=== PATIENT | male | born 1980 | race African-American/Black ===

== ENCOUNTER → 2016-09-30 | Outpatient (CLI) | payer SELFPAY ==
[2016-09-30 12:51] LABS: ABSOLUTE EOSINOPHILS # (AUTO) 0.1 10^3/uL (0.0-0.6); ABSOLUTE MONOCYTES (AUTO) 0.3 10^3/uL (0.1-1.4); ABSOLUTE NEUT (AUTO) 2.9 10^3/uL (1.7-8.2); BASOPHILS % (AUTO) 0.6 % (0-2); EOSINOPHILS % (AUTO) 1.6 % (0-6); HEMATOCRIT 45.6 % (37.9-51.0); HEMOGLOBIN 14.9 g/dL (13.5-17.0); HGB HCT DIFFERENCE -0.9; LYMPHOCYTES % (AUTO) 36.7 % (13-45); MEAN CORPUSCULAR HEMOGLOBIN 27.7 pg (27.0-33.4); MEAN CORPUSCULAR HGB CONC 32.6 g/dL (32.0-36.0); MEAN CORPUSCULAR VOLUME 85 fl (80-97); MONOCYTES % (AUTO) 6.6 % (3-13); RED BLOOD COUNT 5.36 10^6/uL (4.35-5.55); RED CELL DISTRIBUTION WIDTH 13.5 % (11.5-14.0); SEGMENTED NEUTROPHILS % (AUTO) 54.5 % (42-78); WHITE BLOOD COUNT 5.3 10^3/uL (4.0-10.5)
[2016-09-30 13:06] LABS: ALANINE AMINOTRANSFERASE 27 U/L (21-72); ALBUMIN 4.5 g/dL (3.5-5.0); ALKALINE PHOSPHATASE 103 U/L (38-126); ANION GAP 14 (5-19); ASPARTATE AMINO TRANSFERASE 12 U/L (17-59); BILIRUBIN,DIRECT 0.3 mg/dL (0.0-0.4); BILIRUBIN,TOTAL 0.6 mg/dL (0.2-1.3); BLOOD UREA NITROGEN 13 mg/dL (7-20); CALCIUM 10.3 mg/dL (8.4-10.2); CARBON DIOXIDE 25 mmol/L (22-30); CHLORIDE 101 mmol/L (98-107); CHOLESTEROL 159.28 mg/dL (0-200); CREATININE RESULT 0.89 mg/dL (0.52-1.25); Direct HDL 37 mg/dL (>40); GLUCOSE 334 mg/dL (75-110); POTASSIUM 4.9 mmol/L (3.6-5.0); SODIUM 140.1 mmol/L (137-145); TOTAL PROTEIN 7.7 g/dL (6.3-8.2); TRIGLYCERIDES 97 mg/dL (<150)
[2016-09-30 13:17] LABS: DIRECT LDL 105 mg/dL (<100)
== END ==
LOC: OD 11:52
PROVIDERS: ATTEND Physician Assistant
DX: E78.5 Hyperlipidemia, unspecified (principal); E11.9 Type 2 diabetes mellitus without complications
CPT/HCPCS: 36415; 80053; 80061; 83036; 85025

== ENCOUNTER → 2016-12-13 | Outpatient (CLI) | payer SELFPAY ==
--- NOTE | 2016-12-14 09:18 | RADIOLOGY REPORT (SQ) ---
EXAM DESCRIPTION: PET CT SKULL/THIGH COMPLETED DATE/TIME: 12/13/2016 8:28 pm REASON FOR STUDY: MALIGNANT NEOPLASM OF RECTUM C20 MALIGNANT NEOPLASM OF RECTUM COMPARISON: None. RADIONUCLIDE AND DOSE: 12.6 mCi F18 FDG The route of agent administration: Intravenous FASTING BLOOD SUGAR: 108 mg/dl CONTRAST TYPE AND DOSE: No CT contrast given. TECHNIQUE: Blood glucose level was verified. Above dose of FDG was injected intravenously. 2-D seg mented attenuation correction images were obtained from the base of the skull to the midthighs. Nonc ontrast CT images were obtained for attenuation correction and fusion with emission images. CT image s were performed without oral or intravenous contrast and are not sensitive for parenchymal lesions. A series of overlapping emission PET images were obtained. Images reviewed and manipulated at [facility] work station by the radiologist. Images stored on PACS. LIMITATIONS: None. FINDINGS: HEAD AND NECK: No areas of abnormal metabolic activity in the soft tissues of the head and neck. CHEST: No areas of abnormal metabolic activity in the chest. ABDOMEN AND PELVIS: There are 2 hypermetabolic nodes in the ischiorectal fossa to right of midline. The largest has indistinct tissue margins with the right rectal wall. Largest node measures 2 cm and 5.4 SUV. Smaller node measures about 1 cm and maximum 2.4 SUV. PROXIMAL LOWER EXTREMITIES: No areas of abnormal metabolic activity in the soft tissues of the lower extremities. BONES: No abnormal metabolic activity in the visualized skeleton. ADDITIONAL CT FINDINGS: Right-sided port with tip in the SVC. OTHER: No other significant findings. IMPRESSION: Hypermetabolic regional nodes. TECHNICAL DOCUMENTATION: JOB ID: [id number] [employer]- All Rights Reserved
== END ==
LOC: RAD 17:44
PROVIDERS: ATTEND Internal Medicine Medical Oncology
DX: C20 Malignant neoplasm of rectum (principal)
CPT/HCPCS: 78815; A9552

== ENCOUNTER → 2017-01-04 | Outpatient (CLI) | payer SELFPAY ==
--- NOTE | 2017-01-04 12:11 | XCELERA REPORT ---
[address] [address] Upper Extremity Venous Evaluation Name: YAMIL MCLEAN JR Age: 37 yrs Gender: Male : 1980 Patient Status: Outpatient Patient Location: Study Date: 01/04/2017 10:22 AM Procedure: Unilateral duplex scan of the right upper extremity veins was performed, including responses to compression and other maneuvers. Reason For Study: RUE SWELLING Ordering Physician: ZAIRE DAVID Performed By: Bernice Springer Right Side Venous Evaluation Abnormal vessel filling, no compression or augmentation in the Internal Jugular vein. Otherwise normal flow, compression and augmentation, in the deep and superficial veins. Interpretation Summary Deep venous thrombosis, limited to the Internal Jugular vein on the right. The patient to return to Dr David's office. : ZAIRE DAVID > Randy Mclean
== END ==
LOC: SP 10:13
PROVIDERS: ATTEND Internal Medicine Medical Oncology
DX: M54.2 Cervicalgia (principal); R22.1 Localized swelling, mass and lump, neck
CPT/HCPCS: 93971

== ENCOUNTER 2017-01-05 17:34 | Emergency (ER) | payer SELFPAY ==
[2017-01-05] MEDS ORDERED: NORMAL SALINE 1000 ML 1,000 ML IV ONE (18:16)
[2017-01-05] MEDS ORDERED: MORPHINE SULFATE 10 MG/ML INJ IV ONE (18:17)
--- NOTE | 2017-01-05 18:18 | ER Document Report ---
ED Medical Screen (RME) - General Chief Complaint: Back Pain Stated Complaint: BACK PAIN, NECK PAIN Time Seen by Provider: 01/05/17 18:14 Notes: Patient has colorectal cancer. He recently had a port in his right neck that became clotted. Today they placed a PICC line in his left arm. He states starting yesterday he began to have right-sided mid back pain that radiates to the right abdomen. Is now progressed today and become severe. He states he does not feel short of breath but does hurt when he takes a deep breath. He has not appreciated any change of his urine. No vomiting. TRAVEL OUTSIDE OF THE [place] IN LAST 30 DAYS: No - Related Data Allergies/Adverse Reactions: No Known Allergies Allergy (Verified 01/05/17 17:44) Past Medical History - Past Medical History Cardiac Medical History: Reports: Hx Hypertension Endocrine Medical History: Reports: Hx Diabetes Mellitus Type 2 Renal/ Medical History: Denies: Hx Peritoneal Dialysis Physical Exam - Vital signs Vitals: Temp Pulse BP Pulse Ox 98.7 F 111 H 133/78 H 100 01/05/17 17:42 01/05/17 17:42 01/05/17 17:42 01/05/17 17:42 Course - Vital Signs Vital signs: Temp Pulse Resp BP Pulse Ox 98.7 F 111 H 133/78 H 100 01/05/17 17:42 01/05/17 17:42 01/05/17 17:42 01/05/17 17:42
[2017-01-05 18:58] LABS: APPEARANCE,URINE CLEAR; BILIRUBIN,URINE NEGATIVE (NEGATIVE); GLUCOSE, URINE NEGATIVE (NEGATIVE); KETONES,URINE NEGATIVE (NEGATIVE); LEUKOCYTE ESTERASE,URINE NEGATIVE (NEGATIVE); NITRITE,URINE NEGATIVE (NEGATIVE); PROTEIN,URINE NEGATIVE (NEGATIVE); URINE SPECIFIC GRAVITY 1.013; UROBILINOGEN,URINE NEGATIVE mg/dL (<2.0)
[2017-01-05 19:38] LABS: ABSOLUTE BASOPHILS # (AUTO) 0.1 10^3/uL (0.0-0.2); ABSOLUTE EOSINOPHILS # (AUTO) 0.1 10^3/uL (0.0-0.6); ABSOLUTE LYMPHOCYTES (AUTO) 1.1 10^3/uL (0.5-4.7); ABSOLUTE MONOCYTES (AUTO) 0.8 10^3/uL (0.1-1.4); ABSOLUTE NEUT (AUTO) 5.2 10^3/uL (1.7-8.2); BASOPHILS % (AUTO) 0.7 % (0-2); HEMATOCRIT 38.3 % (37.9-51.0); HEMOGLOBIN 13.1 g/dL (13.5-17.0); LYMPHOCYTES % (AUTO) 15.1 % (13-45); MEAN CORPUSCULAR HEMOGLOBIN 27.8 pg (27.0-33.4); MEAN CORPUSCULAR HGB CONC 34.2 g/dL (32.0-36.0); MEAN CORPUSCULAR VOLUME 81 fl (80-97); MONOCYTES % (AUTO) 11.2 % (3-13); RED BLOOD COUNT 4.71 10^6/uL (4.35-5.55); RED CELL DISTRIBUTION WIDTH 14.2 % (11.5-14.0); WHITE BLOOD COUNT 7.2 10^3/uL (4.0-10.5)
[2017-01-05 19:55] LABS: ALANINE AMINOTRANSFERASE 31 U/L (21-72); ALBUMIN 4.5 g/dL (3.5-5.0); ALKALINE PHOSPHATASE 96 U/L (38-126); ANION GAP 16 (5-19); ASPARTATE AMINO TRANSFERASE 15 U/L (17-59); BILIRUBIN,DIRECT 0.5 mg/dL (0.0-0.4); BLOOD UREA NITROGEN 10 mg/dL (7-20); CALCIUM 9.8 mg/dL (8.4-10.2); CARBON DIOXIDE 25 mmol/L (22-30); CHLORIDE 98 mmol/L (98-107); GLUCOSE 215 mg/dL (75-110); POTASSIUM 4.1 mmol/L (3.6-5.0); TOTAL PROTEIN 7.6 g/dL (6.3-8.2)
--- NOTE | 2017-01-05 20:24 | ER Document Report ---
ED General - General Chief Complaint: Back Pain Stated Complaint: BACK PAIN, NECK PAIN Time Seen by Provider: 01/05/17 18:14 Mode of Arrival: Ambulatory Information source: Patient, Relative Notes: 37-year-old male presents with complaints of right lower lobe pain and right upper abdominal pain with breathing. Patient was diagnosed with a blood clot in the left jugular. TRAVEL OUTSIDE OF THE [place] IN LAST 30 DAYS: No - Related Data Allergies/Adverse Reactions: No Known Allergies Allergy (Verified 01/05/17 17:44) Past Medical History - Social History Smoking Status: Unknown if Ever Smoked Family History: Reviewed & Not Pertinent - Past Medical History Cardiac Medical History: Reports: Hx Hypertension Endocrine Medical History: Reports: Hx Diabetes Mellitus Type 2 Renal/ Medical History: Denies: Hx Peritoneal Dialysis Review of Systems - Review of Systems Notes: REVIEW OF SYSTEMS: CONSTITUTIONAL : Denies fever, chills, or sweats. Denies recent illness. EENT: Denies eye, ear, throat, or mouth pain or symptoms. Denies nasal or sinus congestion or discharge. Denies throat, tongue, or mouth swelling or difficulty swallowing. CARDIOVASCULAR: Denies chest pain. Denies palpitations or racing or irregular heart beat. Denies ankle edema. RESPIRATORY: Admits to shortness of breath GASTROINTESTINAL: Denies abdominal pain or distention. Denies nausea, vomiting , or diarrhea. Denies blood in vomitus, stools, or per rectum. Denies black, tarry stools. Denies constipation. GENITOURINARY: Denies difficulty urinating, painful urination, burning, frequency, blood in urine, or discharge. MUSCULOSKELETAL: Denies back or neck pain or stiffness. Denies joint pain or swelling. SKIN: Denies rash, lesions or sores. HEMATOLOGIC : Denies easy bruising or bleeding. LYMPHATIC: Denies swollen, enlarged glands. NEUROLOGICAL: Denies confusion or altered mental status. Denies passing out or loss of consciousness. Denies dizziness or lightheadedness. Denies headache. Denies weakness or paralysis or loss of use of either side. Denies problems with gait or speech. Denies sensory loss, numbness, or tingling. Denies seizures. PSYCHIATRIC: Denies anxiety or stress. Denies depression, suicidal ideation, or homicidal ideation. ALL OTHER SYSTEMS REVIEWED AND NEGATIVE. Dictation was performed using [employer] recognition software PHYSICAL EXAMINATION: GENERAL: Well-appearing, well-nourished and in no acute distress. HEAD: Atraumatic, normocephalic. EYES: Pupils equal round and reactive to light, extraocular movements intact, sclera anicteric, conjunctiva are normal. ENT: Nares patent, oropharynx clear without exudates. Moist mucous membranes. NECK: Normal range of motion, supple without lymphadenopathy LUNGS: Breath sounds clear to auscultation bilaterally and equal. No wheezes rales or rhonchi. HEART: Regular rate and rhythm without murmurs ABDOMEN: Soft, nontender, nondistended abdomen. No guarding, no rebound. No masses appreciated. Musculoskeletal: Normal range of motion, no pitting or edema. No cyanosis. NEUROLOGICAL: Cranial nerves grossly intact. Normal speech, normal gait. Normal sensory, motor exams PSYCH: Normal mood, normal affect. SKIN: Warm, Dry, normal turgor, no rashes or lesions noted. Physical Exam - Vital signs Vitals: Temp Pulse BP Pulse Ox 98.7 F 111 H 133/78 H 100 01/05/17 17:42 01/05/17 17:42 01/05/17 17:42 01/05/17 17:42 Course - Re-evaluation Re-evalutation: 01/05/17 21:37 CTA was performed through the patient's PICC line, it does note small bilateral pulmonary emboli, given his history of blood clot in his neck and the fact that he was going to get started on Xarelto tomorrow I will start him on the medication today. I believe he is stable for discharge his O2 sats 100% heart rate is less than 100 respiratory rate is less than 20 and the patient overall looks quite well After performing a Medical Screening Examination, I estimate there is LOW risk for ACUTE CORONARY SYNDROME, RESPIRATORY FAILURE, SEPSIS OR MENINGITIS, thus I consider the discharge disposition reasonable. I have reevaluated this patient multiple times and no significant life threatening changes are noted. The patient and I have discussed the diagnosis and risks, and we agree with discharging home with close follow-up. We also discussed returning to the Emergency Department immediately if new or worsening symptoms occur. We have discussed the symptoms which are most concerning (e.g., changing or worsening pain, trouble swallowing or breathing, neck stiffness, fever) that necessitate immediate return. - Vital Signs Vital signs: Temp Pulse Resp BP Pulse Ox 98.7 F 111 H 19 149/99 H 99 01/05/17 17:42 01/05/17 17:42 01/05/17 20:41 01/05/17 20:41 01/05/17 20:41 - Laboratory Result Diagrams: 01/05/17 19:25 01/05/17 19:25 Laboratory results interpreted by me: 01/05/17 01/05/17 19:25 19:25 Hgb 13.1 L RDW 14.2 H Glucose 215 H Direct Bilirubin 0.5 H AST 15 L - Diagnostic Test Radiology reviewed: Image reviewed, Reports reviewed - Bilateral pulmonary emboli Discharge - Discharge Clinical Impression: Bilateral pulmonary embolism Colon cancer Qualifiers: Colon location: unspecified part of colon Qualified Code(s): C18.9 - Malignant neoplasm of colon, unspecified Condition: Stable Disposition: HOME, SELF-CARE Additional Instructions: Please follow-up with your crap game box person regarding the use of blood thinners Return immediately if there are any other concerns Referrals: GHADA CALVIN MD [Primary Care Provider] - Follow up as needed
--- NOTE | 2017-01-05 21:19 | RADIOLOGY REPORT (SQ) ---
EXAM DESCRIPTION: CTA CHEST COMPLETED DATE/TIME: 01/05/2017 9:06 pm REASON FOR STUDY: hx clotting issues, picc line placed COMPARISON: None. TECHNIQUE: CT scan of the chest performed using helical scanning technique with dynamic intravenous contrast injection. Images reviewed with lung, soft tissue and bone windows. Reconstructed coronal and sagittal MPR images reviewed. Additional 3 dimensional post-processing performed to develop Maximal Intensity Projection images (AK P). All images stored on PACS. All CT scanners at this facility use dose modulation, iterative reconstruction, and/or weight based d osing when appropriate to reduce radiation dose to as low as reasonably achievable (ALARA). [facility]: Dose Right [facility]: CareDose [facility]: Dose Right [facility]: Teradose 4D [facility]: Codealike CONTRAST TYPE AND DOSE: 100 mL Isovue 370 Contrast bolus optimized for the pulmonary arteries. Not diagnostic for the aorta RENAL FUNCTION: None required. The patient is less than 50 years old. RADIATION DOSE: . LIMITATIONS: None. FINDINGS: LUNGS AND PLEURA: There is focal airspace density in the posterior sulcus on the right whi ch could represent atelectatic changes or a minimal pneumonic infiltrate. Remaining lung sparrow are clear. No pleural effusions are identified. No pneumothorax is seen. AORTA AND GREAT VESSELS: No aneurysm. Contrast bolus not optimized for the aorta. HEART: No pericardial effusion. No significant coronary artery calcifications. PULMONARY ARTERIES: There are small pulmonary emboli in a single descending pulmonary artery bilatera lly. HILAR AND MEDIASTINAL STRUCTURES: No identified masses or abnormal nodes. HARDWARE: None in the chest. UPPER ABDOMEN: See results under abdominal CT scan THYROID AND OTHER SOFT TISSUES: No masses. No adenopathy. BONES: No acute or significant finding. 3D MIPS: Confirm above findings. OTHER: No other significant finding. IMPRESSION: There is focal airspace density in the posterior sulcus on the right which could represe nt atelectatic changes or minimal pneumonic infiltrate. There are small pulmonary emboli in a single descending pulmonary artery bilaterally. Other findings as noted above COMMENT: Quality ID # 436: Final reports with documentation of one or more dose reduction techniques (e.g., Automated exposure control, adjustment of the mA and/or kV according to patient size, use of iterative reconstruction technique) TECHNICAL DOCUMENTATION: JOB ID: [id number] [employer]- All Rights Reserved
[2017-01-05] MEDS ORDERED: RIVAROXABAN 15 MG TABLET PO ONE (21:23)
--- NOTE | 2017-01-05 21:25 | RADIOLOGY REPORT (SQ) ---
EXAM DESCRIPTION: CTA ABDOMEN/PELVIS W WO COMPLETED DATE/TIME: 01/05/2017 9:06 pm REASON FOR STUDY: hx clotting issues, picc line placed COMPARISON: None. TECHNIQUE: CT scan of the abdominal aorta extending to the iliac bifurcation performed with intraven ous contrast using helical scanning technique with dynamic intravenous contrast injection. Images rev iewed with lung, soft tissue, and bone windows. Reconstructed coronal and sagittal MPR images reviewe d. All images stored on PACS. Advanced 3D imaging as volume rendering, MIPS, SSD performed? No All CT scanners at this facility use dose modulation, iterative reconstruction, and/or weight based d osing when appropriate to reduce radiation dose to as low as reasonably achievable (ALARA). [facility]: Dose Right [facility]: CareDose [facility]: Dose Right [facility]: Teradose 4D [facility]: Autotether CONTRAST TYPE AND DOSE: contrast/concentration: Isovue 370.00 mg/ml; Total Contrast Delivered: 100.0 ml; Total Saline Delivered: 87.0 ml RENAL FUNCTION: None required. The patient is less than 50 years old. LIMITATIONS: None. FINDINGS: POST-CONTRAST IMAGING: AORTA AND VESSELS: No aneurysm. No dissection. Renal arteries, SMA, celiac without stenosis. LUNG BASES: See results under CTA of the chest LIVER: Normal size. No masses or dilated ducts. SPLEEN: Normal size. No focal lesions. PANCREAS: No masses. No significant calcifications. No adjacent inflammation or peripancreatic fluid collections. Pancreatic duct not dilated. GALLBLADDER: No identified stones by CT criteria. No inflammatory changes to suggest cholecystitis. ADRENAL GLANDS: No significant masses or asymmetry. RIGHT KIDNEY AND URETER: No mass, calculi or urinary tract obstruction. LEFT KIDNEY AND URETER: No mass, calculi or urinary tract obstruction. RETROPERITONEUM: No retroperitoneal adenopathy, hemorrhage or masses. BOWEL AND PERITONEAL CAVITY: There is irregular thickening of the montes of the rectosigmoid. While t his may be related to edematous or inflammatory changes, the possibility of a mass cannot be excluded . APPENDIX: Normal. ABDOMINAL WALL: No masses. No hernias. BONY STRUCTURES: No significant or acute findings. 3-D IMAGING: Confirms the above findings. OTHER: No other significant finding. IMPRESSION: NO ABDOMINAL AORTIC ANEURYSM, DISSECTION OR SIGNIFICANT STENOSIS. There is irregular th ickening of the montes of the rectosigmoid. While this may be related to edematous or inflammatory ch anges, the possibility of a mass cannot be excluded. Clinical correlation is recommended. Other fin dings as noted above TECHNICAL DOCUMENTATION: JOB ID: [id number] Quality ID # [id number]: Final reports with documentation of one or more dose reduction techniques (e.g., Au tomated exposure control, adjustment of the mA and/or kV according to patient size, use of iterative reconstruction technique) 2010 [employer] All Rights Reserved
[2017-01-05 21:41] VITALS: BP 145/96
== END 2017-01-05 21:53 | disposition home or self-care (01) ==
LOC: ER 17:34
DX: I26.99 Other pulmonary embolism without acute cor pulmonale (principal); I82.C12 Acute embolism and thrombosis of left internal jugular vein; C18.9 Malignant neoplasm of colon, unspecified; R10.11 Right upper quadrant pain; I10 Essential (primary) hypertension; E11.9 Type 2 diabetes mellitus without complications; R06.02 Shortness of breath
CPT/HCPCS: 36592; 99284; 96361; 96374; 36415; 85025; 80053; 81001; 71275; 74174; J2270; J7030

== ENCOUNTER → 2017-03-17 | Outpatient (CLI) | payer MEDICAID | LOC: OD 10:21 | PROVIDERS: ATTEND Radiology Radiation Oncology | DX: C20 Malignant neoplasm of rectum (principal) | CPT/HCPCS: 36415; 82378 ==

== ENCOUNTER 2017-05-21 19:14 | Emergency (ER) | payer OTHER, MEDICAID ==
[2017-05-21] MEDS ORDERED: NORMAL SALINE 1000 ML 1,000 ML IV ONE (19:38)
--- NOTE | 2017-05-21 19:38 | ER Document Report ---
ED Medical Screen (RME) - General Chief Complaint: Post Surgical Pain Stated Complaint: BODY PAIN,WEAKNESS,TINGLING Time Seen by Provider: 05/21/17 19:31 Notes: RME DISCLOSURE I have seen this patient as part of a Rapid Medical Evaluation and, if applicable, placed any initially appropriate orders. The patient will be seen and fully evaluated, including a full history and physical exam, by a provider ( in Main ED or Fast Track) when a room becomes available. 37-year-old male status post recent colectomy (cancer) with ostomy placement here with complaints of feeling weak, dizzy, lightheaded, and pain all over that has been ongoing for a while but had been present even at discharge from the hospital 2 days ago. He has not had any vomiting diarrhea cough but has felt "hot". Has not checked his temperature at home. EXAM Moderately tachycardic TRAVEL OUTSIDE OF THE [place] IN LAST 30 DAYS: No - Related Data Allergies/Adverse Reactions: No Known Allergies Allergy (Verified 01/05/17 17:44) Past Medical History - Social History Chew tobacco use (# tins/day): No Drug Abuse: None - Past Medical History Cardiac Medical History: Reports: Hx Hypertension Endocrine Medical History: Reports: Hx Diabetes Mellitus Type 2 Renal/ Medical History: Denies: Hx Peritoneal Dialysis Physical Exam - Vital signs Vitals: Temp Pulse Resp BP Pulse Ox 99.7 F 128 H 18 108/57 L 100 05/21/17 19:23 05/21/17 19:23 05/21/17 19:23 05/21/17 19:23 05/21/17 19:23 Course - Vital Signs Vital signs: Temp Pulse Resp BP Pulse Ox 99.7 F 128 H 18 108/57 L 100 05/21/17 19:23 05/21/17 19:23 05/21/17 19:23 05/21/17 19:23 05/21/17 19:23
[2017-05-21] MEDS ORDERED: HYDROCODONE/ACETAMINOPHEN 5-325 MG TABLET PO ONE (19:39)
--- NOTE | 2017-05-21 20:32 | ER Document Report ---
ED General - General Chief Complaint: Post Surgical Pain Stated Complaint: BODY PAIN,WEAKNESS,TINGLING Time Seen by Provider: 05/21/17 19:31 Notes: Patient is a 37-year-old male that comes emergency department for chief complaint of weakness, feeling lightheaded, and generalized body aches. He is postop colectomy on 05/03 (by Surgeon Dr. Sorto at [facility]), was discharged 2 days ago to home, states he felt okay then and then has felt worse since. He denies bleeding in his ostomy bag, he states his wounds are healing and not painful, he denies vomiting, he denies cough or difficulty breathing, he denies chest pain. He had colectomy secondary to colon cancer. He also has non-insulin- dependent diabetes and hypertension. His PCP is Dr. Cici Martinez. TRAVEL OUTSIDE OF THE [place] IN LAST 30 DAYS: No - Related Data Allergies/Adverse Reactions: No Known Allergies Allergy (Verified 01/05/17 17:44) Past Medical History - General Information source: Patient - Social History Smoking Status: Never Smoker Chew tobacco use (# tins/day): No Drug Abuse: None Lives with: Spouse/Significant other Family History: Reviewed & Not Pertinent Patient has suicidal ideation: No Patient has homicidal ideation: No - Past Medical History Cardiac Medical History: Reports: Hx Hypertension Endocrine Medical History: Reports: Hx Diabetes Mellitus Type 2 Renal/ Medical History: Denies: Hx Peritoneal Dialysis Past Surgical History: Reports: Hx Bowel Surgery - Immunizations Hx Diphtheria, Pertussis, Tetanus Vaccination: Yes Review of Systems - Review of Systems Constitutional: See HPI EENT: No symptoms reported Cardiovascular: No symptoms reported Respiratory: No symptoms reported Gastrointestinal: See HPI Genitourinary: No symptoms reported Male Genitourinary: No symptoms reported Musculoskeletal: No symptoms reported Skin: No symptoms reported Hematologic/Lymphatic: No symptoms reported Neurological/Psychological: No symptoms reported Physical Exam - Vital signs Vitals: Temp Pulse Resp BP Pulse Ox 99.7 F 128 H 18 108/57 L 100 05/21/17 19:23 05/21/17 19:23 05/21/17 19:23 05/21/17 19:23 05/21/17 19:23 - General General appearance: Appears well, Alert In distress: None - HEENT Head: Normocephalic, Atraumatic Eyes: Normal Extraocular movements intact: Yes Eyelashes: Normal Pupils: PERRL Mouth/Lips: Normal Mucous membranes: Normal Pharynx: Normal Neck: Normal - Cardiovascular Rhythm: Regular, Tachycardia Heart sounds: Normal auscultation, S1 appreciated, S2 appreciated - Abdominal Inspection: Healed incision - Healed incisions over the right side of the abdomen, left mid to lower abdomen with a ostomy bag with normal-appearing stool. Tenderness: Tender - Minimal generalized tenderness, nonspecific, no guarding, no focal tenderness - Back Back: Normal, Nontender. No: Tender - Extremities General upper extremity: Normal inspection, Nontender, Normal strength, Normal temperature General lower extremity: Normal inspection, Nontender, Normal strength, Normal temperature - Neurological Neuro grossly intact: Yes Cognition: Normal Orientation: AAOx4 [place] Coma Scale Eye Opening: Spontaneous [place] Coma Scale Verbal: Oriented Shahab Coma Scale Motor: Obeys Commands [place] Coma Scale Total: 15 Speech: Normal Cranial nerves: Normal Cerebellar coordination: Normal Motor strength normal: LUE, RUE, LLE, RLE Additional motor exam normals: Equal deputy clerk of superior court Sensory: Normal - Psychological Associated symptoms: Normal affect, Normal mood - Skin Skin irregularity: other - There is a FELY drain over the left lower buttock area that has some bloody drainage in the FELY drain, no significant tenderness, induration, or erythema around the wound, there are old healing wounds over the abdomen on the right side with no surrounding erythema, tenderness, or induration. Course - Re-evaluation Re-evalutation: Patient initially tachycardic on examination, however he is very well-appearing , alert, clear lungs, soft abdomen, wounds and drains all appear normal with no erythema, purulent discharge, or other abnormality noted. No fever. No vomiting or abdominal pain reported. Ostomy output appears normal. After IV fluids patient's tachycardia resolved and he states that he no longer has any symptoms, he states he feels much better. CBC shows some anemia but not concerningly low, no leukocytosis, chemistry is generally unremarkable, urinalysis unremarkable. Thrombocytosis noted but patient is postop and had blood transfusions. Likely reactive. Chest x-ray unremarkable as well. Discussed with Dr. Best. Because patient has not had fever, vomiting or abdominal pain, his tachycardia has resolved, and he is currently asymptomatic with an unremarkable workup, recommends patient call his provider within the next 48 hours, strict return precautions, but patient can be discharged at this time. I discussed this with patient, he is very satisfied with this plan. - Vital Signs Vital signs: Temp Pulse Resp BP Pulse Ox 98.5 F 128 H 22 H 133/74 H 100 05/22/17 00:35 05/21/17 19:23 05/22/17 01:01 05/22/17 01:01 05/22/17 01:01 - Laboratory Result Diagrams: 05/21/17 19:29 05/21/17 19:29 Laboratory results interpreted by me: 05/21/17 05/21/17 19:29 19:29 RBC 3.15 L Hgb 8.7 L Hct 25.5 L RDW 15.9 H Plt Count 899 H Lymphocytes % 8.5 L Monocytes % 14.6 H Sodium 133.8 L Chloride 95 L Albumin 3.3 L Discharge - Discharge Clinical Impression: Generalized weakness, Body aches Condition: Stable Disposition: HOME, SELF-CARE Additional Instructions: Your workup does not show any concerning abnormality at this time. Follow-up closely with both primary care and surgery as planned. Return immediately if you worsen including vomiting, redness around the wound, discolored discharge from the wound, fever 100.4 or greater, abdominal pain, or any other concerning or worsening symptoms. Referrals: SHEREE MARTINEZ MD [Primary Care Provider] - Follow up as needed
[2017-05-21 21:12] LABS: ABSOLUTE BASOPHILS # (AUTO) 0.1 10^3/uL (0.0-0.2); ABSOLUTE EOSINOPHILS # (AUTO) 0.1 10^3/uL (0.0-0.6); ABSOLUTE LYMPHOCYTES (AUTO) 0.8 10^3/uL (0.5-4.7); ABSOLUTE MONOCYTES (AUTO) 1.4 10^3/uL (0.1-1.4); ABSOLUTE NEUT (AUTO) 7.1 10^3/uL (1.7-8.2); BASOPHILS % (AUTO) 0.6 % (0-2); EOSINOPHILS % (AUTO) 0.9 % (0-6); HEMATOCRIT 25.5 % (37.9-51.0); HEMOGLOBIN 8.7 g/dL (13.5-17.0); LYMPHOCYTES % (AUTO) 8.5 % (13-45); MEAN CORPUSCULAR HEMOGLOBIN 27.5 pg (27.0-33.4); MEAN CORPUSCULAR VOLUME 81 fl (80-97); MONOCYTES % (AUTO) 14.6 % (3-13); PLATELET COUNT 899 10^3/uL (150-450); RED BLOOD COUNT 3.15 10^6/uL (4.35-5.55); RED CELL DISTRIBUTION WIDTH 15.9 % (11.5-14.0); SEGMENTED NEUTROPHILS % (AUTO) 75.4 % (42-78); TOTAL CELLS COUNTED % (AUTO) 100 %; WHITE BLOOD COUNT 9.5 10^3/uL (4.0-10.5)
--- NOTE | 2017-05-21 21:13 | RADIOLOGY REPORT (SQ) ---
EXAM DESCRIPTION: CHEST SINGLE VIEW COMPLETED DATE/TIME: 05/21/2017 8:48 pm REASON FOR STUDY: post op, weak COMPARISON: None. EXAM PARAMETERS: NUMBER OF VIEWS: One view. TECHNIQUE: Single frontal radiographic view of the chest acquired. RADIATION DOSE: NA LIMITATIONS: None. FINDINGS: LUNGS AND PLEURA: No pneumothorax. No consolidation or pleural effusion. MEDIASTINUM AND HILAR STRUCTURES: No masses. Contour normal. HEART AND VASCULAR STRUCTURES: Heart normal in size. Normal vasculature. BONES: No acute findings. HARDWARE: Left PICC line. OTHER: No other significant finding. IMPRESSION: NO ACUTE RADIOGRAPHIC FINDING IN THE CHEST. TECHNICAL DOCUMENTATION: JOB ID: [id number] 2010 [employer]- All Rights Reserved Reading location - IP/workstation name: [email or web address]
[2017-05-21 21:30] LABS: ALANINE AMINOTRANSFERASE 36 U/L (21-72); ALBUMIN 3.3 g/dL (3.5-5.0); ALKALINE PHOSPHATASE 67 U/L (38-126); ANION GAP 12 (5-19); ASPARTATE AMINO TRANSFERASE 21 U/L (17-59); BILIRUBIN,DIRECT 0.3 mg/dL (0.0-0.4); BILIRUBIN,TOTAL 0.3 mg/dL (0.2-1.3); BLOOD UREA NITROGEN 8 mg/dL (7-20); CALCIUM 9.3 mg/dL (8.4-10.2); CARBON DIOXIDE 27 mmol/L (22-30); CHLORIDE 95 mmol/L (98-107); GLUCOSE 104 mg/dL (75-110); POTASSIUM 3.9 mmol/L (3.6-5.0); SODIUM 133.8 mmol/L (137-145); TOTAL PROTEIN 6.5 g/dL (6.3-8.2)
[2017-05-21] MEDS ORDERED: NORMAL SALINE 1000 ML 500 ML IV ONE (23:01)
[2017-05-21 23:02] LABS: APPEARANCE,URINE CLEAR; BILIRUBIN,URINE NEGATIVE (NEGATIVE); COLOR,URINE YELLOW; GLUCOSE, URINE NEGATIVE (NEGATIVE); KETONES,URINE NEGATIVE (NEGATIVE); LEUKOCYTE ESTERASE,URINE NEGATIVE (NEGATIVE); NITRITE,URINE NEGATIVE (NEGATIVE); PROTEIN,URINE NEGATIVE (NEGATIVE); UROBILINOGEN,URINE NEGATIVE mg/dL (<2.0)
[2017-05-22 01:03] VITALS: BP 133/74
== END 2017-05-22 01:15 | disposition home or self-care (01) ==
LOC: ER 19:14
DX: R53.1 Weakness (principal); M79.1 Myalgia; G89.18 Other acute postprocedural pain; C18.9 Malignant neoplasm of colon, unspecified; R20.0 Anesthesia of skin; I10 Essential (primary) hypertension; E11.9 Type 2 diabetes mellitus without complications; Z79.4 Long term (current) use of insulin; Z90.49 Acquired absence of other specified parts of digestive tract
CPT/HCPCS: 99285; 96360; 86900; 86901; 36415; 87040; 86850; 85025; 80053; 81001; 83605; 71045; J7030

== ENCOUNTER → 2018-01-30 | Outpatient (CLI) | payer MEDICAID ==
--- NOTE | 2018-01-31 08:56 | RADIOLOGY REPORT (SQ) ---
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 RADIONUCLIDE AND DOSE: 10 mCi F18 FDG The route of agent administration: Intravenous FASTING BLOOD SUGAR: 107 mg/dl CONTRAST TYPE AND DOSE: No CT contrast given. TECHNIQUE: Blood glucose level was verified. Above dose of FDG was injected intravenously. 2-D seg mented attenuation correction images were obtained from the base of the skull to the midthighs. Nonc ontrast CT images were obtained for attenuation correction and fusion with emission images. CT image s were performed without oral or intravenous contrast and are not sensitive for parenchymal lesions. A series of overlapping emission PET images were obtained. Images reviewed and manipulated at [facility] work station by the radiologist. Images stored on PACS. LIMITATIONS: None. FINDINGS: HEAD AND NECK: No areas of abnormal metabolic activity in the soft tissues of the head and neck. CHEST: No areas of abnormal metabolic activity in the chest. There are new thin walled cystic lesion s in the left lower lobe measuring 7 mm and 9 mm (axial series 3, image 79 and image 87). ABDOMEN AND PELVIS: Interval resection of the rectosigmoid with left lower quadrant ostomy. Previous ly seen hypermetabolic lymph node in the right ischial fossa no longer present. No areas of abnormal metabolic activity in the abdomen or pelvis. Expected physiologic activity is present in the genito urinary system and bowel. PROXIMAL LOWER EXTREMITIES: No areas of abnormal metabolic activity in the soft tissues of the lower extremities. BONES: New linear areas of increased activity in the marrow of the proximal right and left femur. Me an SUV value 7.0 and 6.08. No other abnormal metabolic activity in the visualized skeleton. ADDITIONAL CT FINDINGS: No additional significant findings on the noncontrast CT images. OTHER: No other significant findings. Background blood pool activity mean SUV 1.35. Background live r activity mean SUV 2.08. IMPRESSION: 1. INTERVAL DEVELOPMENT OF SMALL THIN WALLED CYSTIC LESIONS IN THE LEFT LOWER LOBE. NO ASSOCIATED IN CREASED ACTIVITY. CANNOT EXCLUDE THE POSSIBILITY OF SMALL METASTASES WHICH HAVE MINIMAL SOFT TISSUE AND ARE NOT DETECTABLE ON PET IMAGING. 2. INTERVAL RESECTION OF THE RECTOSIGMOID. PREVIOUSLY SEEN HYPERMETABOLIC PERIRECTAL LYMPH NODES NO LONGER PRESENT. 3. INCREASED ACTIVITY IN THE MARROW OF THE PROXIMAL RIGHT AND LEFT FEMUR. THE DISTRIBUTION IS UNUSUA L AND NOT TYPICAL FOR BONY METASTASES. WOULD CONSIDER MRI FOR FURTHER EVALUATION. TECHNICAL DOCUMENTATION: JOB ID: [id number] [employer]- All Rights Reserved Reading location - IP/workstation name: [email or web address]
== END ==
LOC: RAD 16:57
PROVIDERS: ATTEND Internal Medicine Medical Oncology
DX: C20 Malignant neoplasm of rectum (principal)
CPT/HCPCS: 78815; A9552

== ENCOUNTER → 2018-04-04 | Outpatient (CLI) | payer MEDICAID ==
--- NOTE | 2018-04-04 12:09 | RADIOLOGY REPORT (SQ) ---
EXAM DESCRIPTION: CT CHEST WITH COMPLETED DATE/TIME: 04/04/2018 10:25 am REASON FOR STUDY: DISORDER OF THE LUNG J98.4 OTHER DISORDERS OF LUNG COMPARISON: 01/05/2017 TECHNIQUE: CT scan of the chest performed using helical scanning technique with dynamic intravenous contrast injection. Images reviewed with lung, soft tissue and bone windows. Reconstructed coronal and sagittal MPR and MIP images reviewed. All images stored on PACS. All CT scanners at this facility use dose modulation, iterative reconstruction, and/or weight based d osing when appropriate to reduce radiation dose to as low as reasonably achievable (ALARA). [facility]: Dose Right [facility]: CareDose [facility]: Dose Right [facility]: Teradose 4D [facility]: [employer] CONTRAST TYPE AND DOSE: contrast/concentration: Isovue 350.00 mg/ml; Total Contrast Delivered: 80.0 ml; Total Saline Delivered: 55.0 ml RENAL FUNCTION: Creatinine 1.4 RADIATION DOSE: CT Rad equipment meets quality standard of care and radiation dose reduction techniq ues were employed. CTDIvol: 15.7 mGy. DLP: 644 mGy-cm. . LIMITATIONS: None. FINDINGS: LUNGS AND PLEURA: Interval decrease in the right lower lobe airspace disease since the pr ior study. Small residual remains, axial image 100, series 4. A bilobed pulmonary nodule left lower lobe, axial image 66, coronal image 82, series 601, represent a new finding since the prior examinat ion. Stable minimal to very slight pleural nodularity in the lower lobes and scattered scarring or a telectasis in the lungs. No pneumothorax or pleural effusion. The central airways are clear. HILAR AND MEDIASTINAL STRUCTURES: Stable appearing fibrofatty triangular density in the anterior med iastinum, may represent remnant thymic tissue. HEART AND VASCULAR STRUCTURES: The previously demonstrated small pulmonary emboli in the lower segme ntal arteries bilaterally are not visualized on the current study. No aneurysm or dissection. No pe ricardial effusion. HARDWARE: None in the chest. UPPER ABDOMEN: No significant oval changes. Limited exam. THYROID AND OTHER SOFT TISSUES: The visualized thyroid gland is stable in appearance with small hypo attenuated nodules present. BONES: The osseous structures are stable in appearance. OTHER: No other significant finding. IMPRESSION: 1. Since the previous CT-CTA chest examination dated 01/05/2017, interval resolution of these bilateral subsegmental pulmonary emboli. 2. Interval decrease in the right lower lobe airspace disease. Small residual remains. 3. A new bilobed 5-6 mm left lower lobe pulmonary nodule. A follow-up noncontrast CT chest examinat ion in three months. 4. Additional stable findings as above appear TECHNICAL DOCUMENTATION: JOB ID: [id number] Quality ID # [id number]: Final reports with documentation of one or more dose reduction techniques (e.g., Au tomated exposure control, adjustment of the mA and/or kV according to patient size, use of iterative reconstruction technique) 2010 [employer]- All Rights Reserved Reading location - IP/workstation name: [email or web address]
== END ==
LOC: RAD 09:58
PROVIDERS: ATTEND Internal Medicine Medical Oncology
DX: J98.4 Other disorders of lung (principal)
CPT/HCPCS: 71260; 82565

== ENCOUNTER → 2018-09-12 | Outpatient (CLI) | payer MEDICAID ==
--- NOTE | 2018-09-12 13:56 | RADIOLOGY REPORT (SQ) ---
EXAM DESCRIPTION: CT CHEST WITHOUT COMPLETED DATE/TIME: 09/12/2018 1:28 pm REASON FOR STUDY: R91.1 SOLITARY PULMONARY NODULE R91.1 SOLITARY PULMONARY NODULE COMPARISON: 04/04/2018 TECHNIQUE: CT scan performed of the chest without intravenous contrast. Images reviewed with lung, soft tissue and bone windows. Reconstructed coronal and sagittal MPR images reviewed. All images st ored on PACS. All CT scanners at this facility use dose modulation, iterative reconstruction, and/or weight based d osing when appropriate to reduce radiation dose to as low as reasonably achievable (ALARA). [facility]: Dose Right [facility]: CareDose [facility]: Dose Right [facility]: Teradose 4D [facility]: [employer] RADIATION DOSE: CT Rad equipment meets quality standard of care and radiation dose reduction techniq ues were employed. CTDIvol: 16.5 mGy. DLP: 724 mGy-cm. mGy. LIMITATIONS: No technical limitations. FINDINGS: LUNGS AND PLEURA: There is bandlike scarring in the right lower lobe which is unchanged fr om PET-CT 01/30/2018. Left lower lobe pulmonary nodule has resolved. No developing nodules or infil trate. HILAR AND MEDIASTINAL STRUCTURES: No identified masses or abnormal nodes. No obvious aneurysm. HEART AND VASCULAR STRUCTURES: No aneurysm. No pericardial effusion. UPPER ABDOMEN: No significant findings. Limited exam. THYROID AND OTHER SOFT TISSUES: No masses. No adenopathy. BONES: No significant finding. HARDWARE: None in the chest. OTHER: No other significant findings. IMPRESSION: Right basilar scarring. Left pulmonary nodule has resolved. TECHNICAL DOCUMENTATION: JOB ID: [id number] Quality ID # [id number]: Final reports with documentation of one or more dose reduction techniques (e.g., Au tomated exposure control, adjustment of the mA and/or kV according to patient size, use of iterative reconstruction technique) 2010 [employer]- All Rights Reserved Reading location - IP/workstation name: [email or web address]
== END ==
LOC: RAD 12:55
PROVIDERS: ATTEND Internal Medicine Medical Oncology
DX: R91.1 Solitary pulmonary nodule (principal)
CPT/HCPCS: 71250; 82565

== ENCOUNTER → 2018-10-07 | Outpatient (CLI) | payer MEDICAID ==
[2018-10-07 10:42] LABS: HEMATOCRIT 41.4 % (37.9-51.0); HEMOGLOBIN 13.8 g/dL (13.5-17.0); MEAN CORPUSCULAR HEMOGLOBIN 28.3 pg (27.0-33.4); MEAN CORPUSCULAR HGB CONC 33.4 g/dL (32.0-36.0); MEAN CORPUSCULAR VOLUME 85 fl (80-97); PLATELET COUNT 371 10^3/uL (150-450); RED BLOOD COUNT 4.88 10^6/uL (4.35-5.55); RED CELL DISTRIBUTION WIDTH 13.1 % (11.5-14.0); WHITE BLOOD COUNT 4.7 10^3/uL (4.0-10.5)
[2018-10-07 10:54] LABS: APPEARANCE,URINE CLEAR; BILIRUBIN,URINE NEGATIVE (NEGATIVE); COLOR,URINE STRAW; GLUCOSE, URINE >=500 mg/dL (NEGATIVE); KETONES,URINE NEGATIVE (NEGATIVE); LEUKOCYTE ESTERASE,URINE NEGATIVE (NEGATIVE); NITRITE,URINE NEGATIVE (NEGATIVE); PROTEIN,URINE NEGATIVE (NEGATIVE); URINE SPECIFIC GRAVITY 1.016; UROBILINOGEN,URINE NEGATIVE mg/dL (<2.0)
[2018-10-07 11:00] LABS: ANION GAP 12 (5-19); BLOOD UREA NITROGEN 27 mg/dL (7-20); CALCIUM 10.4 mg/dL (8.4-10.2); CARBON DIOXIDE 25 mmol/L (22-30); CHLORIDE 103 mmol/L (98-107); GLUCOSE 309 mg/dL (75-110); PHOSPHORUS 4.1 mg/dL (2.5-4.5); POTASSIUM 4.8 mmol/L (3.6-5.0)
[2018-10-08 11:37] LABS: CREATININE URINE 62.2 mg/dL (Not Estab.)
== END ==
LOC: OD 10:09
PROVIDERS: ATTEND Physician Assistant Medical
DX: N17.9 Acute kidney failure, unspecified (principal); I10 Essential (primary) hypertension; E11.9 Type 2 diabetes mellitus without complications; E87.1 Hypo-osmolality and hyponatremia
CPT/HCPCS: 36415; 80048; 81001; 82043; 82570; 83970; 84100; 85027

== ENCOUNTER → 2019-02-03 | Outpatient (CLI) | payer OTHER ==
[2019-02-03 09:22] LABS: ABSOLUTE EOSINOPHILS # (AUTO) 0.1 10^3/uL (0.0-0.6); ABSOLUTE LYMPHOCYTES (AUTO) 2.1 10^3/uL (0.5-4.7); ABSOLUTE MONOCYTES (AUTO) 0.5 10^3/uL (0.1-1.4); ABSOLUTE NEUT (AUTO) 3.3 10^3/uL (1.7-8.2); BASOPHILS % (AUTO) 0.7 % (0-2); EOSINOPHILS % (AUTO) 2.5 % (0-6); HEMATOCRIT 40.1 % (37.9-51.0); HEMOGLOBIN 13.7 g/dL (13.5-17.0); LYMPHOCYTES % (AUTO) 35.2 % (13-45); MEAN CORPUSCULAR HEMOGLOBIN 28.2 pg (27.0-33.4); MEAN CORPUSCULAR HGB CONC 34.2 g/dL (32.0-36.0); MEAN CORPUSCULAR VOLUME 83 fl (80-97); MONOCYTES % (AUTO) 7.8 % (3-13); PLATELET COUNT 318 10^3/uL (150-450); RED BLOOD COUNT 4.86 10^6/uL (4.35-5.55); RED CELL DISTRIBUTION WIDTH 14.5 % (11.5-14.0); SEGMENTED NEUTROPHILS % (AUTO) 53.8 % (42-78); TOTAL CELLS COUNTED % (AUTO) 100 %
[2019-02-03 09:46] LABS: ALBUMIN 4.9 g/dL (3.5-5.0); ALKALINE PHOSPHATASE 81 U/L (38-126); ANION GAP 11 (5-19); ASPARTATE AMINO TRANSFERASE 30 U/L (17-59); BILIRUBIN,DIRECT 0.3 mg/dL (0.0-0.4); BILIRUBIN,TOTAL 0.6 mg/dL (0.2-1.3); BLOOD UREA NITROGEN 31 mg/dL (7-20); CALCIUM 10.3 mg/dL (8.4-10.2); CARBON DIOXIDE 24 mmol/L (22-30); CHLORIDE 103 mmol/L (98-107); CHOLESTEROL 144.81 mg/dL (0-200); GLUCOSE 287 mg/dL (75-110); POTASSIUM 4.8 mmol/L (3.6-5.0); TOTAL PROTEIN 8.5 g/dL (6.3-8.2); TRIGLYCERIDES 244 mg/dL (<150)
[2019-02-03 10:02] LABS: DIRECT LDL 80 mg/dL (<100)
[2019-02-03 10:12] LABS: VLDL CHOLESTEROL 48.8 mg/dL (10-31)
== END ==
LOC: CCC 08:50
DX: Z00.00 Encounter for general adult medical examination without abnormal findings (principal)
CPT/HCPCS: 36415; 80053; 80061; 83036; 84443; 85025

== ENCOUNTER 2019-09-24 08:16 | Emergency (ER) | payer SELFPAY ==
[2019-09-24 08:20] VITALS: BP 166/88
--- NOTE | 2019-09-24 08:53 | ER Document Report ---
ED GI/ - General Chief Complaint: Abdominal Pain Stated Complaint: ABDOMINAL PAIN Time Seen by Provider: 09/24/19 08:47 Primary Care Provider: [facility] [Primary Care Provider] - Follow up as needed Notes: CHIEF COMPLAINT: Abdominal pain for 1 day HPI: 39-year-old male with history of type 2 diabetes, hypertension, colon cancer that resulted in a resection with stoma placement in the left lower abd omen years ago presenting for generalized abdominal pain over the last 24 hours. Has not had nausea vomiting. Has been passing gas and stool through his stoma. Describes a constant generalized abdominal discomfort sensation that seems to wax and wane. Denies fever. ROS: See HPI - all other systems were reviewed and are otherwise negative Constitutional: no fever Eyes: no drainage, no blurred vision ENT: no runny nose, no sore throat Cardiovascular: no chest pain Resp: no SOB, no cough GI: no vomiting, no diarrhea, + positive abdominal pain : no dysuria Integumentary: no rash Allergy: no hives Musculoskeletal: no extremity pain or swelling Neurological: no numbness/tingling, no weakness MEDICATIONS: I agree with the patient medications as charted by the RN. ALLERGIES: I agree with the allergies as charted by the RN. PAST MEDICAL HISTORY/PAST SURGICAL HISTORY: Reviewed and agree as charted by RN. SOCIAL HISTORY: Reviewed and agree as charted by RN. FAMILY HISTORY: No significant familial comorbid conditions directly related to patient complaint EXAM: Reviewed vital signs as charted by RN. CONSTITUTIONAL: Alert and oriented and responds appropriately to questions. Well-appearing; well-nourished HEAD: Normocephalic; atraumatic EYES: Conjunctivae clear, sclerae non-icteric ENT: normal nose; no rhinorrhea; moist mucous membranes NECK: Supple without meningismus; non-tender; no cervical lymphadenopathy, no masses CARD: RRR; no murmurs, no clicks, no rubs, no gallops; symmetric distal pulses RESP: Normal chest excursion without splinting or tachypnea; breath sounds clear and equal bilaterally; no wheezes, no rhonchi, no rales, pulse oximetry 99% on room air not hypoxic ABD/GI: Normal bowel sounds; non-distended; soft, there is no reproducible tenderness on palpation of the abdomen, no rebound, no guarding; no palpable organomegaly or masses. Stoma is noted in the left lower quadrant and is pink BACK: The back appears normal and is non-tender to palpation, there is no CVA tenderness EXT: Normal ROM in all joints; non-tender to palpation; no cyanosis, no effusions, no edema SKIN: Normal color for age and race; warm; dry; good turgor; no acute lesions noted NEURO: Moves all extremities equally; Motor and sensory function intact PSYCH: The patient's mood and manner are appropriate. Grooming and personal hygiene are appropriate. MDM: 39-year-old male history of colon cancer with stoma in the left lower abdomen presenting for generalized abdominal pain for 24 hours. No reproducible pain but describes an uncomfortable sensation in the mid abdomen. Differential is large will obtain screening labs and plan for CT imaging given his history to evaluate for surgical or infectious process TRAVEL OUTSIDE OF THE [place] IN LAST 30 DAYS: No - Related Data Allergies/Adverse Reactions: No Known Allergies Allergy (Verified 01/05/17 17:44) Past Medical History - Social History Smoking Status: Unknown if Ever Smoked Family History: Reviewed & Not Pertinent - Past Medical History Cardiac Medical History: Reports: Hx Hypertension Endocrine Medical History: Reports: Hx Diabetes Mellitus Type 2 Renal/ Medical History: Denies: Hx Peritoneal Dialysis Past Surgical History: Reports: Hx Bowel Surgery - Immunizations Hx Diphtheria, Pertussis, Tetanus Vaccination: Yes Physical Exam - Vital signs Vitals: Temp Pulse Resp BP Pulse Ox 98.5 F 84 14 166/88 H 97 09/24/19 08:19 09/24/19 08:19 09/24/19 08:19 09/24/19 08:19 09/24/19 08:19 Course - Re-evaluation Re-evalutation: 09/24/19 11:04 Patient is not uncomfortable at this time. He has a normal CT, no abnormal labs. This may be a viral etiology I spoke with him about COVID testing but patient is uncertain about this. I will refer patient to gastroenterology will place him on Bentyl, Protonix. He has no upper abdominal discomfort chest pain shortness of breath to suggest atypical ACS 09/24/19 11:28 EKG sinus rhythm with a ventricular rate of 67, borderline inferior T wave flattening. QT 372. Interpreted by emergency department attending physician 09/24/19 11:29 I did again speak with the patient about COVID testing but he declines - Vital Signs Vital signs: Temp Pulse Resp BP Pulse Ox 98.5 F 84 14 166/88 H 97 09/24/19 08:19 09/24/19 08:19 09/24/19 08:19 09/24/19 08:19 09/24/19 08:19 - Laboratory Result Diagrams: 09/24/19 09:00 09/24/19 09:00 Laboratory results interpreted by me: 09/24/19 09/24/19 09:00 09:00 Sodium 135.5 L BUN 23 H Creatinine 1.60 H Est GFR ( Amer) 59 L Est GFR (MDRD) Non-Af 48 L Glucose 290 H Lipase 378.7 H Urine Glucose (UA) >=500 H Urine Blood SMALL H Discharge - Discharge Clinical Impression: Abdominal pain, acute, generalized Condition: Stable Disposition: HOME, SELF-CARE Additional Instructions: Take the Bentyl for abdominal pain or spasm. Zofran for nausea vomiting. Follow-up with gastroenterology or your primary care provider for reevaluation of symptoms return for worsening condition Prescriptions: Dicyclomine HCl [Bentyl 20 mg Tablet] 20 mg PO Q6H PRN #20 tablet PRN Reason: Ondansetron [Zofran Odt 4 mg Tablet] 1 - 2 tab PO Q4H PRN #15 tab.rapdis PRN Reason: For Nausea/Vomiting Referrals: [facility] [Primary Care Provider] - Follow up as needed ELAYNE RAVI MD [ACTIVE STAFF] - Follow up as needed
[2019-09-24 09:16] LABS: ABSOLUTE BASOPHILS # (AUTO) 0.1 10^3/uL (0.0-0.2); ABSOLUTE EOSINOPHILS # (AUTO) 0.2 10^3/uL (0.0-0.6); ABSOLUTE MONOCYTES (AUTO) 0.8 10^3/uL (0.1-1.4); ABSOLUTE NEUT (AUTO) 6.2 10^3/uL (1.7-8.2); BASOPHILS % (AUTO) 1.1 % (0-2); EOSINOPHILS % (AUTO) 1.9 % (0-6); HEMATOCRIT 41.2 % (37.9-51.0); HEMOGLOBIN 14.2 g/dL (13.5-17.0); LYMPHOCYTES % (AUTO) 21.9 % (13-45); MEAN CORPUSCULAR HEMOGLOBIN 29.6 pg (27.0-33.4); MEAN CORPUSCULAR HGB CONC 34.3 g/dL (32.0-36.0); MEAN CORPUSCULAR VOLUME 86 fl (80-97); MONOCYTES % (AUTO) 8.7 % (3-13); PLATELET COUNT 342 10^3/uL (150-450); RED BLOOD COUNT 4.78 10^6/uL (4.35-5.55); RED CELL DISTRIBUTION WIDTH 13.8 % (11.5-14.0); SEGMENTED NEUTROPHILS % (AUTO) 66.4 % (42-78); TOTAL CELLS COUNTED % (AUTO) 100 %; WHITE BLOOD COUNT 9.4 10^3/uL (4.0-10.5)
[2019-09-24 09:27] LABS: APPEARANCE,URINE CLEAR; BILIRUBIN,URINE NEGATIVE (NEGATIVE); COLOR,URINE YELLOW; GLUCOSE, URINE >=500 mg/dL (NEGATIVE); KETONES,URINE NEGATIVE (NEGATIVE); LEUKOCYTE ESTERASE,URINE NEGATIVE (NEGATIVE); NITRITE,URINE NEGATIVE (NEGATIVE); PROTEIN,URINE NEGATIVE (NEGATIVE); URINE SPECIFIC GRAVITY 1.014; UROBILINOGEN,URINE NEGATIVE mg/dL (<2.0)
[2019-09-24 09:33] LABS: ALBUMIN 4.6 g/dL (3.5-5.0); ALKALINE PHOSPHATASE 89 U/L (38-126); ANION GAP 10 (5-19); ASPARTATE AMINO TRANSFERASE 30 U/L (17-59); BILIRUBIN,TOTAL 0.4 mg/dL (0.2-1.3); BLOOD UREA NITROGEN 23 mg/dL (7-20); CALCIUM 10.2 mg/dL (8.4-10.2); CARBON DIOXIDE 23 mmol/L (22-30); CHLORIDE 103 mmol/L (98-107); GLUCOSE 290 mg/dL (75-110); POTASSIUM 4.9 mmol/L (3.6-5.0); TOTAL PROTEIN 7.8 g/dL (6.3-8.2)
[2019-09-24] MEDS ORDERED: NORMAL SALINE 1000 ML 1,000 ML IV ONE (09:58)
--- NOTE | 2019-09-24 10:34 | RADIOLOGY REPORT (SQ) ---
EXAM DESCRIPTION: CT ABD/PELVIS WITH IV ONLY IMAGES COMPLETED DATE/TIME: 09/24/2019 10:15 am REASON FOR STUDY: gen abd pain COMPARISON: None. TECHNIQUE: CT scan of the abdomen and pelvis performed using helical scanning technique with dynamic intravenous contrast injection. No oral contrast. Images reviewed with lung, soft tissue, and bone w indows. Reconstructed coronal and sagittal MPR images reviewed. Delayed images for evaluation of the urinary system also acquired. All images stored on PACS. All CT scanners at this facility use dose modulation, iterative reconstruction, and/or weight based d osing when appropriate to reduce radiation dose to as low as reasonably achievable (ALARA). [facility]: Dose Right [facility]: CareDose [facility]: Dose Right [facility]: Teradose 4D [facility]: [employer] CONTRAST TYPE AND DOSE: contrast/concentration: Isovue 350.00 mmol/ml; Total Contrast Delivered: 100 .0 ml; Total Saline Delivered: 71.9 ml RENAL FUNCTION: GFR > 60. RADIATION DOSE: CT Rad equipment meets quality standard of care and radiation dose reduction techniq ues were employed. CTDIvol: NaN - NaN mGy. DLP: 0 mGy-cm.. LIMITATIONS: None. FINDINGS: LOWER CHEST: Minimal right basilar scarring -subsegmental atelectasis. LIVER: Normal size. No enhancing masses. No dilated ducts. SPLEEN: Normal size. No focal lesions. PANCREAS: No masses identified. No significant calcifications. No adjacent inflammation or peripancre atic fluid collections. Pancreatic duct not dilated. GALLBLADDER: No calcified stones. No inflammatory changes to suggest cholecystitis. ADRENAL GLANDS: No significant masses. RIGHT KIDNEY AND URETER: No cysts identified. No solid masses identified. No calcified stones. No hyd ronephrosis or hydroureter. LEFT KIDNEY AND URETER: No cysts identified. No solid masses identified. No calcified stones. No hydr onephrosis or hydroureter. AORTA AND VESSELS: No aneurysm. No dissection. Renal arteries, SMA, celiac without significant stenos is. RETROPERITONEUM: No bulky retroperitoneal adenopathy. BOWEL AND PERITONEAL CAVITY: Colostomy left lower quadrant. Prior resection of the rectosigmoid colo n with expected postsurgical scarring in the deep pelvis. No obstruction. No fluid collection. APPENDIX: Normal. PELVIS: Unremarkable bladder. Prior resection of the rectosigmoid colon with expected postsurgical sc arring in the deep pelvis. BONES: No acute findings. OTHER: No other significant finding. IMPRESSION: Colostomy left lower quadrant. Prior resection of the rectosigmoid colon with expected postsurgical scarring in the deep pelvis. No obstruction. No acute findings identified. TECHNICAL DOCUMENTATION: JOB ID: [id number] Quality ID # [id number]: Final reports with documentation of one or more dose reduction techniques (e.g., Au tomated exposure control, adjustment of the mA and/or kV according to patient size, use of iterative reconstruction technique) 2010 [employer]- All Rights Reserved Reading location - IP/workstation name: [email or web address]
--- NOTE | 2019-09-24 14:07 | EKG REPORT ---
SEVERITY:- BORDERLINE ECG - SINUS RHYTHM BORDERLINE T ABNORMALITIES, INFERIOR LEADS : Confirmed by: Anthony Ji MD 24-Sep-2019 14:06:12
== END 2019-09-24 11:40 | disposition home or self-care (01) ==
LOC: ER 08:16
DX: R10.84 Generalized abdominal pain (principal); R10.32 Left lower quadrant pain; R11.2 Nausea with vomiting, unspecified; Z85.038 Personal history of other malignant neoplasm of large intestine; I10 Essential (primary) hypertension; E11.9 Type 2 diabetes mellitus without complications
CPT/HCPCS: 36415; 74177; 80053; 81001; 83690; 85025; 93005; 93010; 99284